=== PATIENT | female | born 1995 | race Two or more races ===

== ENCOUNTER 2019-09-07 04:46 | Emergency (ER) | payer MEDICAID ==
[~2019-09-07] VITALS: Ht 165.1 cm; Wt 77.1 kg
[2019-09-07 04:50] VITALS: BP 140/85
[2019-09-07] MEDS ORDERED: KETOROLAC TROMETH 60MG/2ML VIAL IM ONE (05:30)
[2019-09-07] MEDS ORDERED: cefTRIAXone SOD 1,000 MG VL IM ONE (05:30)
== END 2019-09-07 05:46 | disposition home or self-care (01) ==
LOC: ER 04:46
DX: H66.92 Otitis media, unspecified, left ear (principal); J06.9 Acute upper respiratory infection, unspecified; J34.89 Other specified disorders of nose and nasal sinuses; Z88.6 Allergy status to analgesic agent
CPT/HCPCS: 96372; 99283; J0696; J1885

== ENCOUNTER 2019-12-06 10:38 | Emergency (ER) | payer MEDICAID ==
[~2019-12-06] VITALS: Ht 165.1 cm; Wt 72.6 kg
[2019-12-06] MEDS ORDERED: SODIUM CHLORIDE 0.9% 1,000 ML IVB ONE (11:12)
[2019-12-06] MEDS ORDERED: ONDANSETRON HCL 4 MG/2 ML VIAL IV ONE (11:15)
[2019-12-06 11:18] LABS: Urine Amorphous Crystal FEW /hpf (None Seen); Urine Bacteria NONE SEEN /hpf (None Seen); Urine Blood 2+ /uL (Negative); Urine WBC 21 /hpf (0 - 5)
[2019-12-06 11:23] LABS: Basophils # (auto) 0.1 uL; Basophils % (auto) 0.8 % (0.0-2.0); Eosinophils # (auto) 0.1 uL; Eosinophils % (auto) 1.4 % (0.0-7.0); Hemoglobin 13.8 g/dL (12.2-16.2); Lymphocytes # (auto) 2.4 uL; Lymphocytes % (auto) 31.3 % (10.0-50.0); Mean Corpuscular Hgb Conc. 33.7 g/dL (32.0-36.0); Mean Corpuscular Volume 86.1 fL (80.0-100.0); Monocytes # (auto) 0.5 uL; Neutrophils # (auto) 4.6 uL; Neutrophils % (auto) 60.5 % (37.0-80.0); Platelet Count (auto) 261 10^3/uL (140-450); Red Blood Cells 4.77 10^6/uL (4.0-5.20); Red Cell Distribution Width 13.8 % (11.8-14.3); White Blood Cell 7.6 10^3/uL (4.4-10.8)
[2019-12-06 11:38] LABS: Albumin 4.2 g/dL (3.4-5.0); Calcium 9.1 mg/dL (8.5-10.1)
[2019-12-06 11:46] LABS: Bilirubin, Total 0.6 mg/dL (0.2-1.0); Total Protein 8.3 g/dL (6.4-8.2)
[2019-12-06 12:01] LABS: BUN/Creatinine Ratio 20.3
[2019-12-06 12:23] LABS: Magnesium 2.1 mg/dL (1.6-2.6)
[2019-12-06] MEDS ORDERED: fentaNYL Drip 2500mCg/250mlNS 250 ML IV SCH (14:48)
[2019-12-06] MEDS ORDERED: MIDAZOLAM DRIP 50 mg/50mL 50 ML IV SCH (14:48)
[2019-12-06] MEDS ORDERED: MIDAZOLAM DRIP 50 mg/50mL 0 ML IV ONE (14:50)
[2019-12-06] MEDS ORDERED: fentaNYL Drip 2500mCg/250mlNS 0 ML IV ONE (14:51)
[2019-12-06] MEDS ORDERED: ETOMIDATE (2MG/ML) 20ML VIAL IV ONE (15:00)
[2019-12-06] MEDS ORDERED: ROCURONIUM 10MG/ML 10ML VIAL IV ONE (15:00)
[2019-12-06 15:18] VITALS: BP 126/73
== END 2019-12-06 14:49 | disposition home or self-care (01) ==
LOC: ER 10:38
DX: N39.0 Urinary tract infection, site not specified (principal); J45.909 Unspecified asthma, uncomplicated; Z90.49 Acquired absence of other specified parts of digestive tract; Z88.6 Allergy status to analgesic agent
CPT/HCPCS: 36415; 76705; 80053; 81001; 81025; 82150; 83690; 83735; 85025; 99284; J7030; J2250